=== PATIENT | female | born 1960 | race Two or more races ===

== ENCOUNTER 2023-09-20 00:09 | Inpatient (IN) | payer MEDICAID, OTHER ==
[~2023-09-20] VITALS: Ht 165.1 cm; Wt 80.0 kg
[2023-09-20 01:00] VITALS: PULSE 98; RESP 25; O2SAT 95
[2023-09-20] MEDS: KETOROLAC TROMETH 30 MG/ML 1ML VIAL IV ONE (01:45)
[2023-09-20] MEDS: SODIUM CHLORIDE 0.9% 1,000 ML IV ONE ×3 (01:45→05:45)
[2023-09-20] MEDS: MORPHINE SULFATE 4 MG/ML SYR/VIAL IV ONE (02:15)
[2023-09-20] MEDS: ONDANSETRON HCL 4 MG/2 ML VIAL IV ONE (02:23)
[2023-09-20 02:25] LABS: Basophils # (auto) 0.1 10 ^3/uL (0-0.2); Basophils % (auto) 0.3 % (0.0-2.0); Eosinophils # (auto) 0.1 10 ^3/uL (0-0.8); Eosinophils % (auto) 0.3 % (0.0-7.0); Hematocrit 45.4 % (36.0-46.0); Hemoglobin 15.4 g/dL (12.2-16.2); Lymphocytes # (auto) 1.5 10 ^3/uL (0.4-5.4); Lymphocytes % (auto) 6.7 % (10.0-50.0); Mean Corpuscular Hgb Conc. 33.9 g/dL (32.0-36.0); Mean Corpuscular Volume 91.4 fL (80.0-100.0); Monocytes # (auto) 1.3 10 ^3/uL (0-1.3); Monocytes % (auto) 5.5 % (0.0-12.0); Neutrophils # (auto) 20.1 10 ^3/uL (1.6-8.6); Neutrophils % (auto) 87.2 % (37.0-80.0); Red Blood Cells 4.97 10^6/uL (4.0-5.20); Red Cell Distribution Width 12.7 % (11.8-14.3)
[2023-09-20 02:42] LABS: Alanine Aminotransferase 45 U/L (7-40); Albumin 4.2 g/dL (3.2-4.8); Alkaline Phosphatase 92 U/L (46-116); Anion Gap 9 (5-15); Aspartate Aminotransferase 22 U/L (13-40); BUN/Creatinine Ratio 21.6 (10.0-20.0); Bilirubin, Total 0.4 mg/dL (0.2-1.0); Blood Urea Nitrogen 30 mg/dL (9-23); Calcium 9.9 mg/dL (8.7-10.4); Carbon Dioxide 25 mmol/L (20-30); Chloride 102 mmol/L (98-107); Glucose 227 mg/dL (74-106); Potassium 4.2 mmol/L (3.5-5.1); Sodium 136 mmol/L (136-145); Total Protein 6.7 g/dL (5.7-8.2)
[2023-09-20] MEDS: PIPERACILLIN-TAZO 4.5GM 100 ML IV ONE (03:03)
[2023-09-20] MEDS: SODIUM CHLORIDE 0.9% 1,000 ML IV SCH (04:15)
[2023-09-20] MEDS ORDERED: NITROGLYCERIN 0.4 MG SL TAB SL PRN (04:15)
[2023-09-20] MEDS ORDERED: MORPHINE SULFATE INJ 2 MG/ml SYRG IV PRN (04:15)
[2023-09-20] MEDS ORDERED: DOCUSATE SOD 100 MG CAP PO PRN (04:15)
[2023-09-20] MEDS ORDERED: DEXTROSE (50%) 50ML SYRG IV PRN (04:30)
[2023-09-20 06:32] LABS: Urine Bacteria MANY /hpf (None Seen); Urine Blood Negative /uL (Negative); Urine Clarity Clear (Clear); Urine Color Light-Yellow (Yellow); Urine Hyaline Cast FEW /lpf (0 - 2); Urine Mucus FEW (None Seen); Urine Protein, UAD Negative (Negative); Urine Specific Gravity 1.012 (1.001-1.035); Urine Urobilinogen Normal (Negative); Urine WBC 8 /hpf (0 - 5)
[2023-09-20] MEDS: ACCU-CHEK COMFORT CURVE STRIP VI SCH (06:53)
[2023-09-20] MEDS: InsuLIN REG 1unit/0.01ml Soln (100units/ml) SC SCH ×2 (06:53→22:00)
[2023-09-20] MEDS: MORPHINE SULFATE INJ 2 MG/ml SYRG IV PRN (06:55)
[2023-09-20 08:08] VITALS: PULSE 70; RESP 14; O2SAT 97
[2023-09-20 08:09] LABS: Basophils # (auto) 0.1 10 ^3/uL (0-0.2); Basophils % (auto) 0.4 % (0.0-2.0); Eosinophils # (auto) 0.1 10 ^3/uL (0-0.8); Eosinophils % (auto) 0.7 % (0.0-7.0); Hematocrit 36.1 % (36.0-46.0); Hemoglobin 12.5 g/dL (12.2-16.2); Lymphocytes # (auto) 2.1 10 ^3/uL (0.4-5.4); Lymphocytes % (auto) 16.5 % (10.0-50.0); Mean Corpuscular Hemoglobin 31.5 pg (28.0-32.0); Mean Corpuscular Hgb Conc. 34.5 g/dL (32.0-36.0); Mean Corpuscular Volume 91.3 fL (80.0-100.0); Monocytes # (auto) 1.1 10 ^3/uL (0-1.3); Monocytes % (auto) 8.7 % (0.0-12.0); Neutrophils # (auto) 9.6 10 ^3/uL (1.6-8.6); Neutrophils % (auto) 73.7 % (37.0-80.0); Red Blood Cells 3.95 10^6/uL (4.0-5.20); Red Cell Distribution Width 12.5 % (11.8-14.3)
[2023-09-20 08:22] LABS: Anion Gap 6 (5-15); Carbon Dioxide 24 mmol/L (20-30); Chloride 110 mmol/L (98-107); Potassium 4.2 mmol/L (3.5-5.1); Sodium 140 mmol/L (136-145)
[2023-09-20 08:24] LABS: Calcium 8.6 mg/dL (8.5-10.1)
[2023-09-20 08:28] LABS: BUN/Creatinine Ratio 18.8 (10.0-20.0); Blood Urea Nitrogen 19 mg/dL (9-23); Glucose 167 mg/dL (74-106)
[2023-09-20] MEDS: HEPARIN SODIUM (PORCINE) 5000 UNITS/ML 1ML VIAL SC SCH (10:08)
[2023-09-20] MEDS: PIPERACILLIN-TAZOB 3.375GM 100 ML IV SCH (11:44)
[2023-09-20 20:00] VITALS: PULSE 76; RESP 16; O2SAT 96
[2023-09-20] MEDS: ONDANSETRON HCL 4 MG/2 ML VIAL IV PRN (21:36)
[2023-09-20 22:10] VITALS: BP 132/74; PULSE 76; RESP 18; TEMP 98.5; O2SAT 96
[2023-09-20 22:47] VITALS: PULSE 76; RESP 18; O2SAT 96
[2023-09-20] MEDS: ACETAMINOPHEN 325 MG TAB PO PRN (23:00)
[2023-09-20] MEDS ORDERED: GABA-339 PO (23:21)
[2023-09-20] MEDS ORDERED: HYDR-4902 PO (23:21)
[2023-09-20] MEDS ORDERED: VENL37.572 PO (23:21)
[2023-09-21] VITALS (7 sets, daily range): BP systolic 115–150; BP diastolic 50–96; PULSE 69–80; RESP 14–18; TEMP 36.8; O2SAT 92–99
[2023-09-21 06:03] LABS: Basophils # (auto) 0 10 ^3/uL (0-0.2); Basophils % (auto) 0.4 % (0.0-2.0); Eosinophils # (auto) 0.2 10 ^3/uL (0-0.8); Eosinophils % (auto) 1.8 % (0.0-7.0); Hematocrit 35.2 % (36.0-46.0); Hemoglobin 12.4 g/dL (12.2-16.2); Lymphocytes # (auto) 3.7 10 ^3/uL (0.4-5.4); Lymphocytes % (auto) 35.3 % (10.0-50.0); Mean Corpuscular Hemoglobin 31.9 pg (28.0-32.0); Mean Corpuscular Hgb Conc. 35.3 g/dL (32.0-36.0); Mean Corpuscular Volume 90.6 fL (80.0-100.0); Monocytes # (auto) 0.8 10 ^3/uL (0-1.3); Monocytes % (auto) 7.7 % (0.0-12.0); Neutrophils # (auto) 5.7 10 ^3/uL (1.6-8.6); Neutrophils % (auto) 54.8 % (37.0-80.0); Nucleated Red Blood Cells % 0.1 %; Red Blood Cells 3.89 10^6/uL (4.0-5.20); Red Cell Distribution Width 12.3 % (11.8-14.3); White Blood Cell 10.4 10^3/uL (4.4-10.8)
[2023-09-21 06:14] LABS: Anion Gap 4 (5-15); Carbon Dioxide 27 mmol/L (20-30); Chloride 109 mmol/L (98-107); Potassium 4.4 mmol/L (3.5-5.1); Sodium 140 mmol/L (136-145)
[2023-09-21 06:16] LABS: Calcium 9.1 mg/dL (8.7-10.4)
[2023-09-21 06:20] LABS: BUN/Creatinine Ratio 14.3 (10.0-20.0); Blood Urea Nitrogen 12 mg/dL (9-23); Glucose 132 mg/dL (74-106)
[2023-09-21] MEDS: HYDROcodone-ACET 5/325MG TAB PO PRN (10:28)
[2023-09-21] MEDS ORDERED: METF-370 PO (16:36)
[2023-09-21] MEDS ORDERED: CEPH500C PO (16:36)
== END 2023-09-21 19:40 | disposition home or self-care (01) | DRG 720 ==
LOC: EDBD 00:09 → ER 00:09 → TELE 04:22 → TELE-WESTW 21:57
PROVIDERS: ADMIT Nurse Practitioner Family; ATTEND Nurse Practitioner Family
DX: A41.9 Sepsis, unspecified organism (principal); N17.0 Acute kidney failure with tubular necrosis; E87.20 Acidosis, unspecified; N39.0 Urinary tract infection, site not specified; I10 Essential (primary) hypertension; E11.65 Type 2 diabetes mellitus with hyperglycemia; E86.0 Dehydration; K52.9 Noninfective gastroenteritis and colitis, unspecified; M79.7 Fibromyalgia; F41.9 Anxiety disorder, unspecified; Z79.899 Other long term (current) drug therapy
CPT/HCPCS: 36415; 70450; 74176; 80048; 80053; 81001; 82962; 83036; 83605; 85025; 87040; 87086; 87088; 87186; 93005; 93306; 96361; 96365; 96372; 96375; 96376; 97163; G0378; J1815; J1885; J2405; J2543

== ENCOUNTER 2024-07-16 16:58 | Inpatient (IN) | payer MEDICAID ==
[~2024-07-16] VITALS: Ht 162.6 cm; Wt 82.3 kg
[~2024-07-16 16:58] MED LIST: CEPH500C PO; GABA-339 PO; HYDR-4902 PO; METF-370 PO; VENL37.572 PO
--- NOTE | 2024-07-16 17:07 | ECG ---
[facility] Test Date: 2024-07-16 Test Time: 17:04:34 Pat Name: MARLIN THURMAN Department: ER Room: Gender: F [employer] Docent: JUANCHO : 1960 Requested By: JAILYN BILL Order Number: [id number] Reading MD: Sanchez Lopez Measurements Intervals [place] Rate: 83 P: 53 SD: 150 QRS: 66 QRSD: 94 T: 36 QT: 382 QTc: 449 Interpretive Statements Sinus rhythm Probable left atrial enlargement Electronically Signed On 07-16-2024 20:39:59 PDT by Sanchez Lopez Please click the below link to view image of tracing.
--- NOTE | 2024-07-16 17:08 | ED.PDOC ---
GI ASSESSMENT HPI Comments 63 y.o female with PMHx of Fibromyalgia, HTN, DM, and CVA, presents to the ED via EMS for a chief complaint of abdominal pain and dizziness. EMS reports patient was at the store picking up cough medicine for her spouse, went to the restroom and developed sudden onset sharp abdominal pain with dizziness leading to the 911 call. EMS administrated 500 cc IV fluid, presents to the ED diaphoretic and mumbling. Patient reports pain is still present and is non radiating. No other symptoms or pain reported. Time Seen by MD: 17:00 Reviewed Notes: Nurses Notes, Medications, Allergies Allergies: Coded Allergies: Prochlorperazine (Verified Allergy, Unknown, 09/20/23) Home Meds Active Scripts Metformin Hydrochloride (Metformin Hcl) 500 Mg Tab, 1 TAB PO BID, #60 TAB 3 Refills Prov:MADELAINE SULLIVAN MD 09/21/23 Cephalexin Monohydrate (Cephalexin) 500 Mg Cap, 1 CAP PO QID for 3 Days, #12 CAP Prov:MADELAINE SULLIVAN MD 09/21/23 Reported Medications Venlafaxine Hydrochloride (Effexor Xr) 37.5 Mg Cap, 1 CAP PO DAILY, #90 CAP 3 Refills 09/20/23 Hydrocodone-Acetaminophen (Hydrocodone Bitartrate/AC 5-325 mg) 1 Tab Tab, 1 TAB PO, TAB 09/20/23 Gabapentin (Gabapentin) 600 Mg Tab, 1 TAB PO BID, #90 TAB 3 Refills 09/20/23 Information Source: Patient, Emergency Med Personnel Mode of Arrival: EMS Timing: Minutes Duration: Since onset Prehospital treatment: IVF Quality: Sharp Vomitus: None Stool: Normal Severity: Moderate Recent: None Recent Hx of: None Pain Location: Diffuse Modifying Factors: Nothing Associated sign and symptoms: Abdominal Pain Past Medical History PAST MEDICAL HISTORY: CVA, DM, HTN Surgical History: Cholecystectomy LNA History: Denies all LNA Hx Family History Family History: Reviewed,noncontributory to illness Social History Smoker: Non-Smoker Alcohol: Denies ETOH Use Drugs: Denies Drug Use Lives In: Home Constitutional: denies: chills, diaphoresis, fatigue, fever, malaise, sweats, weakness, others EENTM: denies: blurred vision, double vision, ear bleeding, ear discharge, ear drainage, ear pain, ear ringing, eye pain, eye redness, hearing loss, mouth pain, mouth swelling, nasal discharge, nose bleeding, nose congestion, nose pain, photophobia, tearing, throat pain, throat swelling, voice changes, others Respiratory: denies: cough, hemoptysis, orthopnea, SOB at rest, shortness of breath, SOB with excertion, stridor, wheezing, others Cardiovascular: denies: chest pain, dizzy spells, diaphoresis, Dyspnea on exertion, edema, irregular heart beat, left arm pain, lightheadedness, palpitations, PND, syncope, others Gastrointestinal: reports: abdominal pain; denies: abdomen distended, blood streaked bowels, constipated, diarrhea, dysphagia, difficulty swallowing, hematemesis, melena, nausea, poor appetite, poor fluid intake, rectal bleeding, rectal pain, vomiting, others Genitourinary: denies: abnormal vagina bleeding, burning, dyspareunia, dysuria, flank pain, frequency, hematuria, incontinence, pain, , vagina discharge, urgency, others Neurological: reports: dizziness; denies: fainting, headache, left sided numbness, left sided weakness, numbness, paresthesia, pre-existing deficit, right sided numbness, right sided weakness, seizure, speech problems, tingling, tremors, weakness, others Musculoskeletal: denies: back pain, gout, joint pain, joint swelling, muscle pain, muscle stiffness, neck pain, others Integumetry: denies: bruises, change in color, change in hair/nails, dryness, laceration, lesions, lumps, rash, wounds, others Allergic/Immunocompromised: denies: Difficulty Healing, Frequent Infections, Hives, Itching, others Hematologic/Lymphatic: denies: anemia, blood clots, easy bleeding, easy bruising, swollen glands, others Endocrine: denies: excessive hunger, excessive sweating, excessive thirst, excessive urination, flushing, intolerance to cold, intolerance to heat, unexplained weight gain, unexplained weight loss, others Psychiatric: denies: anxiety, bipolar disorder, depression, hopeless, panic disorder, schizophrenia, sleepless, suicidal, others All Other Systems: Reviewed and Negative Physical Exam General Appearance: Moderate Distress HEENT: Normal ENT Inspection, Pharynx Normal, TMs Normal Neck: Full Range of Motion, Non-Tender, Normal, Normal Inspection Respiratory: Chest Non-Tender, Lungs Clear, No Accessory Muscle Use, No Respiratory Distress, Normal Breath Sounds Cardiovascular: No Edema, No JVD, No Murmur, No Gallop, Normal Peripheral Pulses, Regular Rate/Rhythm Breast Exam: Deferred Gastrointestinal: No Organomegaly, Non Tender, No Pulsatile Mass, Normal Bowel Sounds, Soft Genitalia: Deferred Pelvic: Deferred Rectal: Deferred Extremities: No calf tenderness, Normal capillary refill, Normal inspection, Normal range of motion, Non-tender, No pedal edema Musculoskeletal : Apperance: Normal Neurologic: pet technologist II-XII nml as Tested, Motor Weakness, No Sensory Deficits, Other (Somewhat lethargic) Cerebellar Function: Normal Reflexes: Normal Skin: Dry, Pallor, Warm Lymphatic: No Adenopathy EKG EKG : Pulse Rate (adult): 83 Cardiac Rhythm: NSR Hypertrophy: LAE Was a procedure done? Was a procedure done?: No GI differential Dx Differential Diagnosis: AAA, Angina/NE, Gastroenteritis, Inflammatory BD, Ischemic Bowel, Ovarian cyst/torsion, Dehydration, Electrolyte Imbalance, Viral X-Ray, Labs, Meds, VS Vital Signs Date Time Temp Pulse Resp B/P (MAP) Pulse Ox O2 Delivery O2 Flow Rate FiO2 07/16/24 19:30 98.5 85 13 125/64 (84) 95 98.5 07/16/24 17:30 Room Air* 0 21 07/16/24 17:30 98.3 69 13 125/64 (84) 98 98.3 07/16/24 17:08 83 07/16/24 17:04 83 07/16/24 17:04 97.9 82 22 124/78 (93) 90 97.9 Lab Test 07/16/24 18:27 07/16/24 17:23 Range/Units Troponin I High Sensitivity < 3 L < 3 L </=34 ng/L White Blood Count 13.0 H 4.4-10.8 10^3/uL Red Blood Count 4.72 4.0-5.20 10^6/uL Hemoglobin 14.9 12.2-16.2 g/dL Hematocrit 44.0 36.0-46.0 % Mean Corpuscular Volume 93.4 80.0-100.0 fL Mean Corpuscular Hemoglobin 31.6 28.0-32.0 pg Mean Corpuscular Hemoglobin Concent 33.8 32.0-36.0 g/dL Red Cell Distribution Width 12.9 11.8-14.3 % Platelet Count 280 140-450 10^3/uL Mean Platelet Volume 8.4 6.9-10.8 fL Neutrophils (%) (Auto) 65.4 37.0-80.0 % Lymphocytes (%) (Auto) 25.0 10.0-50.0 % Monocytes (%) (Auto) 8.1 0.0-12.0 % Eosinophils (%) (Auto) 0.8 0.0-7.0 % Basophils (%) (Auto) 0.7 0.0-2.0 % Neutrophils # (Auto) 8.5 1.6-8.6 10 ^3/uL Lymphocytes # (Auto) 3.2 0.4-5.4 10 ^3/uL Monocytes # (Auto) 1.0 0-1.3 10 ^3/uL Eosinophils # (Auto) 0.1 0-0.8 10 ^3/uL Basophils # (Auto) 0.1 0-0.2 10 ^3/uL Nucleated Red Blood Cells 0.1 % Sodium Level 136 136-145 mmol/L Potassium Level 4.0 3.5-5.1 mmol/L Chloride Level 101 98-107 mmol/L Carbon Dioxide Level 26 20-31 mmol/L Anion Gap 9 5-15 Blood Urea Nitrogen 28 H 9-23 mg/dL Creatinine 1.44 H 0.550-1.02 mg/dL Glomerular Filtration Rate Calc 41 >90 mL/min BUN/Creatinine Ratio 19.4 10.0-20.0 Serum Glucose 187 H 74-106 mg/dL Calcium Level 10.0 8.7-10.4 mg/dL Total Bilirubin 0.4 0.2-1.0 mg/dL Aspartate Amino Transferase (AST) 21 13-40 U/L Alanine Aminotransferase (ALT) 38 7-40 U/L Alkaline Phosphatase 59 46-116 U/L Total Protein 7.2 5.7-8.2 g/dL Albumin 4.6 3.2-4.8 g/dL Lipase 88 H 12-53 U/L The patient's CBC shows an elevated white blood cell count of 13 The chemistry panel shows a BUN of 28 and a creatinine of 1.44 The lipase is 88 indicating some elevation The patient's troponin level is negative x2 The patient will be admitted to the hospitalist The patient was still having generalized weakness and pain Images Reviewed?: Images reviewed and evaluated by me Time of 1ST Reevaluation: 17:07 Reevaluation 1ST: Unchanged Patient Education/Counseling: Diagnosis, Treatment, Prognosis Family Education/Counseling: No Family Present Departure 1 Departure Time of Disposition: 19:58 Impression: Primary Impression: Generalized weakness Additional Impressions: Autonomic dysfunction Abdominal pain Qualified Codes: R10.9 - Unspecified abdominal pain Disposition: 09 ADMITTED INPATIENT Admit to: Tele Condition: Fair Critical Care Note Critical Care Time?: No Stability Stability form required: Yes Unstable for transfer: Telemetry monitoring (Telemetry monitoring required), ED Physician Assesment (Clinical assesment) I personally scribed for JAILYN BILL MD ([email or web address]) on 07/16/24 at 17:08. Electronically submitted by Deandra Maradiaga ([facility]). JAILYN BILL MD Jul 16, 2024 17:08
[2024-07-16 17:45] LABS: Basophils # (auto) 0.1 10 ^3/uL (0-0.2); Basophils % (auto) 0.7 % (0.0-2.0); Eosinophils # (auto) 0.1 10 ^3/uL (0-0.8); Eosinophils % (auto) 0.8 % (0.0-7.0); Hemoglobin 14.9 g/dL (12.2-16.2); Lymphocytes # (auto) 3.2 10 ^3/uL (0.4-5.4); Mean Corpuscular Hemoglobin 31.6 pg (28.0-32.0); Mean Corpuscular Hgb Conc. 33.8 g/dL (32.0-36.0); Mean Corpuscular Volume 93.4 fL (80.0-100.0); Monocytes % (auto) 8.1 % (0.0-12.0); Neutrophils # (auto) 8.5 10 ^3/uL (1.6-8.6); Neutrophils % (auto) 65.4 % (37.0-80.0); Nucleated Red Blood Cells % 0.1 %; Platelet Count (auto) 280 10^3/uL (140-450); Red Blood Cells 4.72 10^6/uL (4.0-5.20); Red Cell Distribution Width 12.9 % (11.8-14.3)
[2024-07-16 18:26] LABS: Alanine Aminotransferase 38 U/L (7-40); Albumin 4.6 g/dL (3.2-4.8); Alkaline Phosphatase 59 U/L (46-116); Anion Gap 9 (5-15); Aspartate Aminotransferase 21 U/L (13-40); BUN/Creatinine Ratio 19.4 (10.0-20.0); Bilirubin, Total 0.4 mg/dL (0.2-1.0); Carbon Dioxide 26 mmol/L (20-31); Chloride 101 mmol/L (98-107); Sodium 136 mmol/L (136-145); Total Protein 7.2 g/dL (5.7-8.2)
[2024-07-16 18:28] LABS: Blood Urea Nitrogen 28 mg/dL (9-23); Glucose 187 mg/dL (74-106); Lipase 88 U/L (12-53)
[2024-07-16 19:30] VITALS: PULSE 107; RESP 26; O2SAT 93
--- NOTE | 2024-07-16 19:45 | DVH ---
Exam: CT CT AB PEL WO CON-NO ORAL OR IV History: pain Comparison Study: None Technique: Multidetector spiral CT of the abdomen was performed from lung bases to pubic symphysis. I maging was performed without IV contrast. Axial, coronal and sagittal multiplanar reformats were obta ined from the axial data set by the technologist. Radiation Dose : 1. Abdomen/Pelvis: CTDIvol 10.62 mGy, DLP 609.84 mGy*cm. Findings: Evaluation of solid organs is limited due to lack of intravenous contrast use. Lung Bases: Scattered scarring. Liver: Hepatic steatosis. Gallbladder and Biliary Tree: Surgically absent gallbladder. No significant biliary ductal dilatation . Spleen: Unremarkable Pancreas: Unremarkable Adrenal Glands: Unremarkable Kidneys: Unremarkable Bladder: Trace air noted within the bladder. Bowel: Mild wall thickening of the descending colon with possible mild adjacent fat stranding. The b owel loops are nondilated. Normal appendix is visualized in the right lower quadrant without findings of appendicitis. Peritoneum and Retroperitoneum: Unremarkable Lymphadenopathy: No lymphadenopathy. Abdominal Wall: Unremarkable. Vasculature: The visualized abdominal aorta is normal in size and caliber. There is atherosclerotic calcification of the aorta and its branches. Evaluation of abdominal and pelvic vessels is limited du e to lack of intravenous contrast. Pelvic Organs: Unremarkable Musculoskeletal: No acute osseous abnormality. Degenerative changes. IMPRESSION: 1. Mild wall thickening of the descending colon with possible mild adjacent fat stranding. Findings c ould represent colitis of infectious or inflammatory etiology. 2. Trace air noted within the bladder, nonspecific, could be due to prior dominguez or can be seen with c ystitis. Radiation optimization: All CT scans at this facility use at least one of these dose optimization miles hniques: automated exposure control mA and/or kV adjustment per patient size (includes targeted exam s where dose is matched to clinical indication) or iterative reconstruction.
[2024-07-16] MEDS: HYDROcodone-ACET 10/325MG TAB PO ONE (20:40)
[2024-07-16] MEDS: SODIUM CHLORIDE 0.9% 1,000 ML IV ONE (21:00)
[2024-07-16 22:57] LABS: Urine Bacteria FEW /hpf (None Seen); Urine Blood Negative /uL (Negative); Urine Clarity Clear (Clear); Urine Color Light-Yellow (Yellow); Urine Hyaline Cast FEW /lpf (0 - 2); Urine Mucus FEW (None Seen); Urine Protein, UAD Negative (Negative); Urine Specific Gravity 1.012 (1.001-1.035); Urine Squamous Epithelial Cell FEW /hpf (<5); Urine Urobilinogen Normal (Negative); Urine WBC 2 /HPF (0-5)
[2024-07-16 22:59] LABS: Opiate Scree,Urine Neg (NEGATIVE)
--- NOTE | 2024-07-16 23:01 | DVH ---
CT BRAIN WITHOUT CONTRAST HISTORY: aloc TECHNIQUE: Axial scans were obtained from the skull base through the vertex without contrast. Sagitta l and coronal reformats were generated. One or more of the following radiation dose reduction techniq ues were used for this examination: automated exposure control, adjustment of the mA and/or kV accord ing to patient size, use of iterative reconstruction technique. COMPARISON: CT HEAD WITHOUT CONTRAST on DOS: 09/20/23 FINDINGS: Mild generalized cerebral and cerebellar atrophy. No acute intracranial hemorrhage or evidence of lar ge vessel territorial infarction identified at this time. No midline shift. The basilar cisterns are patent. The visualized paranasal sinuses and mastoid air cells are clear. No grossly displaced calvarial abno rmalities identified. IMPRESSION: No acute intracranial findings. If there is persistent clinical concern, follow-up MRI may be conside red to further evaluate.
[2024-07-16 23:05] LABS: Amphetamine Screen, Urine Neg (NEGATIVE); Barbiturate Scree,Urine Neg (NEGATIVE); Benzodiazephine Screen, Urine Neg (NEGATIVE); Cannabinoid Screen, Urine Neg (NEGATIVE); Cocaine Screen, Urine Neg (NEGATIVE); Phencyclidine Screen, Urine Neg (NEGATIVE)
[2024-07-16] MEDS ORDERED: ONDANSETRON HCL 4 MG/2 ML VIAL IV PRN (23:15)
[2024-07-16] MEDS: SODIUM CHLORIDE 0.9% 1,000 ML IV SCH (23:15)
[2024-07-16] MEDS: HYDROMORPHONE HCL 1 MG/ML INJ IV ONE (23:22)
[2024-07-16] MEDS: ONDANSETRON HCL 4 MG/2 ML VIAL IV ONE (23:23)
[2024-07-17] VITALS (10 sets, daily range): BP systolic 113–158; BP diastolic 54–90; PULSE 60–112; RESP 15–20; TEMP 98–100.1; O2SAT 90–100
[2024-07-17 00:27] LABS: Lactic Acid w/Reflex 2.6 mmol/L (0.4-2.0)
--- NOTE | 2024-07-17 01:23 | DVHHP2 ---
Admitting Diagnosis: Colitis, UTI, Dizziness History of Present Illness History Source: Patient Exam Limitations: No limitations HPI Mrs. Neida Castano is a 63 y.o female with a past medical history of Fibromyalgia, HTN, DM, and CVA, who presents with a chief complaint of abdominal pain and dizziness. Patient reports patient was at the store picking up cough medicine for her spouse, went to the restroom and developed sudden onset sharp abdominal pain with dizziness leading to the 911 call. Patient reports she was prescribed medication for vertigo, since she has been having ongoing dizziness intermittently however she has never had a near syncope episode. Patient denies chest pain, headaches, blurry vision, nausea, vomiting, abdominal pain, constipation, diarrhea, melena, hematochezia. Patient repots she has familial history of NC with stents, pacemaker placement NC. Patient admitted for further evaluation and treatment. Home Meds Active Scripts Metformin Hydrochloride (Metformin Hcl) 500 Mg Tab, 1 TAB PO BID, #60 TAB 3 Refills Prov:MADELAINE SULLIVAN MD 09/21/23 Cephalexin Monohydrate (Cephalexin) 500 Mg Cap, 1 CAP PO QID for 3 Days, #12 CAP Prov:MADELAINE SULLIVAN MD 09/21/23 Reported Medications Cyclobenzaprine HCl (Cyclobenzaprine Hydrochlo) 10 Mg Tab, 1 TAB PO QHSP 07/17/24 Semaglutide (Rybelsus) 7 Mg Tab, 1 TAB PO DAILY 07/17/24 Baclofen (Baclofen) 20 Mg Tab, 1 TAB PO TID 07/17/24 Sumatriptan Succinate (Sumatriptan Succinate) 100 Mg Tab, 1 TAB PO DAILYPRN 07/17/24 Omeprazole (Omeprazole Dr) 20 Mg Cap, 1 CAP PO DAILY 07/17/24 Hydrocodone-Acetaminophen (Hydrocodone/Acetaminophen 5-325 mg) 1 Tab Tab, 1 TAB PO BIDPRN 07/17/24 Venlafaxine Hcl (Venlafaxine Hcl Er) 75 Mg Cap, 1 CAP PO DAILY 07/17/24 Oxybutynin Chloride (Oxybutynin Chloride) 5 Mg Tab, 1 TAB PO BID 07/17/24 Meloxicam (Meloxicam) 7.5 Mg Tab, 1 TAB PO DAILY 07/17/24 Venlafaxine Hydrochloride (Effexor Xr) 37.5 Mg Cap, 1 CAP PO DAILY, #90 CAP 3 Refills 09/20/23 Hydrocodone-Acetaminophen (Hydrocodone Bitartrate/AC 5-325 mg) 1 Tab Tab, 1 TAB PO, TAB 09/20/23 Gabapentin (Gabapentin) 600 Mg Tab, 1 TAB PO BID, #90 TAB 3 Refills 09/20/23 Past Medical History Cardiac: HTN Pulmonary: No pertinent Hx Central Nervous System: CVA GI: No pertinent Hx Hemotology/Oncology: No pertinent Hx Hepatobiliary: No pertinent Hx Psychiatric: No pertinent Hx Musculoskeletal: No pertinent Hx Rheumotologic: Fibromyalgia Infectious Disease: No peritnent Hx ENT: No pertinent Hx Renal/: No pertinent Hx Endocrine: NIDDM Dermatology: No pertinent Hx Patient Family History: Diabetes mellitus G8 MOTHER G8 FATHER, Hypertension G8 MOTHER Smoker: No Hx (Negative) Alocohol: None Drugs: None Lives with: With family Domestic Violence: Neg Review of Systems Constitutional: No symptom reported Ears, Nose, & Throat: No symptom reported Eyes: No symptom reported Pulmonary/Respiratory: No symptom reported Cardiovascular: Other (near syncope , dizziness) Gastrointestinal: No symptom reported Genitourinary: No symptom reported Musculoskeletal: No symptom reported Skin: No symptom reported Psychiatric: No symptom reported Endocrine: No symptom reported Hemotologic/Lymphatic: No symptom reported H&P Exam Vital Signs Vital Signs Date Time Temp Pulse Resp B/P (MAP) Pulse Ox O2 Delivery O2 Flow Rate FiO2 07/17/24 00:00 79 07/16/24 23:22 12 133/72 07/16/24 21:00 93 07/16/24 19:30 98.5 98.5 07/16/24 17:30 Room Air* 0 21 General Appeara: Well developed, Well nourished, Normal Appearance Head Exam: Normal inspection Neck Exam: Normal inspection, Non-tender, Normal alignment Eye Exam: bilateral eye Normal inspection, bilateral eye PERRL, bilateral eye EOMI Ear Exam: bilateral ear Auricle normal Nasal Exam: Normal inspection Mouth: Normal Inspection Pulmonary/Respiratory: Normal inspection, Normal breath sounds, Chest non- tender, Lungs clear Cardiovascular/Chest: Normal inspection, Regular rate, Normal Rhythm Peripheral Pulses: 2+ dorsalis pedis (R), 2+ dorsalis pedis (L), 2+ Radial (R), 2+ Radial (L) Abdominal Exam: Normal bowel sounds, Soft TAKE OUT WAITER Exam: Normal hearing, Normal speech, PERRL Motor/Sensory: Normal sensory function, Normal motor function Neuro/Mental St: Alert, Oriented Appearance: Appropriate appearance, Appropriate insight Eye contact/ Speech: Cooperative, Good eye contact, Normal speech Thoughts/Psych: Normal thought pattern Skin Exam: Normal inspection, Normal color, Warm/dry Labs/Xrays Labs Test 07/16/24 23:20 07/16/24 20:20 07/16/24 18:27 07/16/24 17:23 Range/Units Lactic Acid Level 2.6 *H 0.4-2.0 mmol/L Urine Color Light-yellow Yellow Urine Clarity Clear Clear Urine pH 5.0 5.0-9.0 Urine Specific [place] 1.012 1.001-1.035 Urine Protein Negative Negative Urine Ketones Negative Negative Urine Blood Negative Negative /uL Urine Nitrite 2+ H Negative Urine Bilirubin Negative Negative Urine Urobilinogen Normal Negative mg/dL Urine Leukocyte Esterase Negative Negative /uL Urine RBC <1 0 - 4 /hpf Urine Microscopic WBC 2 0-5 /HPF Urine Squamous Epithelial Cells Few <5 /hpf Urine Bacteria Few H None Seen /hpf Urine Hyaline Casts Few 0 - 2 /lpf Urine Mucus Few None Seen Urine Glucose Trace Normal mg/dL Urine Opiates Screen Neg NEGATIVE Urine Fentanyl Screen Neg NEGATIVE Urine Barbiturates Screen Neg NEGATIVE Urine Phencyclidine Screen Neg NEGATIVE Urine Amphetamines Screen Neg NEGATIVE Urine Benzodiazepines Screen Neg NEGATIVE Urine Cocaine Screen Neg NEGATIVE Urine Cannabinoids Screen Neg NEGATIVE Thyroid Stimulating Hormone (TSH) 1.27 0.55-4.78 uIU/mL White Blood Count 13.0 H 4.4-10.8 10^3/uL Red Blood Count 4.72 4.0-5.20 10^6/uL Hemoglobin 14.9 12.2-16.2 g/dL Hematocrit 44.0 36.0-46.0 % Mean Corpuscular Volume 93.4 80.0-100.0 fL Mean Corpuscular Hemoglobin 31.6 28.0-32.0 pg Mean Corpuscular Hemoglobin Concent 33.8 32.0-36.0 g/dL Red Cell Distribution Width 12.9 11.8-14.3 % Platelet Count 280 140-450 10^3/uL Mean Platelet Volume 8.4 6.9-10.8 fL Neutrophils (%) (Auto) 65.4 37.0-80.0 % Lymphocytes (%) (Auto) 25.0 10.0-50.0 % Monocytes (%) (Auto) 8.1 0.0-12.0 % Eosinophils (%) (Auto) 0.8 0.0-7.0 % Basophils (%) (Auto) 0.7 0.0-2.0 % Neutrophils # (Auto) 8.5 1.6-8.6 10 ^3/uL Lymphocytes # (Auto) 3.2 0.4-5.4 10 ^3/uL Monocytes # (Auto) 1.0 0-1.3 10 ^3/uL Eosinophils # (Auto) 0.1 0-0.8 10 ^3/uL Basophils # (Auto) 0.1 0-0.2 10 ^3/uL Nucleated Red Blood Cells 0.1 % Sodium Level 136 136-145 mmol/L Potassium Level 4.0 3.5-5.1 mmol/L Chloride Level 101 98-107 mmol/L Carbon Dioxide Level 26 20-31 mmol/L Anion Gap 9 5-15 Blood Urea Nitrogen 28 H 9-23 mg/dL Creatinine 1.44 H 0.550-1.02 mg/dL Glomerular Filtration Rate Calc 41 >90 mL/min BUN/Creatinine Ratio 19.4 10.0-20.0 Serum Glucose 187 H 74-106 mg/dL Hemoglobin A1c 6.2 H <5.7 % A1C Calcium Level 10.0 8.7-10.4 mg/dL Total Bilirubin 0.4 0.2-1.0 mg/dL Aspartate Amino Transferase (AST) 21 13-40 U/L Alanine Aminotransferase (ALT) 38 7-40 U/L Alkaline Phosphatase 59 46-116 U/L Total Protein 7.2 5.7-8.2 g/dL Albumin 4.6 3.2-4.8 g/dL Lipase 88 H 12-53 U/L Assessment/Plan Problem List: (1) Colitis (2) Urinary tract infection (3) Dizziness Plan This is a 63 yo female with known history of hypertension, DM, CVA, Fibromyalgia who presents with abdominal pain and dizziness. Patient was found to have 1. Colitis 2. Urinary tract infection 3. Dizziness 4. hx of CVA 5. Hypertension Plan Admit Telemetry unit Gastroenterology consultation Cardiology consultation, 2D echocardiogram IV antibiotics Flagyl, Levaquin Monitor BMP, CBC GI ppx Protonix DVT ppx Lovenox Analgesics as needed Fall precautions Discussed all above with patient who verbalized agreement and understanding of care plan. All questions were answered. Discussed all above with supervising MD. Plan discussed with: Patient, Other Code Visit Code Visit Total Time (mins): 45 Additional Comments Additional Comments Additional Comments 53-year-old female with a known history of fibromyalgia, diabetes mellitus type 2 initially presented to the hospital with the abdominal pain and dizziness found to have 1. Descending colon colitis 2. UTI 3. Leukocytosis likely reactive 4. Dizziness resolved rule out orthostatic vitals. 5. Diabetes mellitus type 2 6. Fibromyalgia -IV antibiotics, IV hydration, check orthostatic vitals. YOMI ARAYA Jul 17, 2024 01:22 MADELAINE SULLIVAN MD Jul 17, 2024 16:29
[2024-07-17] MEDS: HYDROcodone-ACET 5/325MG TAB PO PRN (02:25)
--- NOTE | 2024-07-17 04:40 | DVH ---
CHEST RADIOGRAPH Indication: admission Technique: Single frontal view of the chest was obtained Comparison: None FINDINGS: Lines and Tubes: None Lungs: No focal consolidation. Pleura: No effusion. No pneumothorax. Cardiomediastinal contours: Unremarkable Bones: No acute osseous abnormality. IMPRESSION: 1. No acute cardiopulmonary disease.
[2024-07-17] MEDS ORDERED: VENL75CA78 PO (05:06)
[2024-07-17] MEDS ORDERED: BACL20TA PO (05:06)
[2024-07-17] MEDS ORDERED: SEMA7TAB2 PO (05:06)
[2024-07-17] MEDS ORDERED: HYDR1TAB97 PO (05:06)
[2024-07-17] MEDS ORDERED: SUMA100T15 PO (05:06)
[2024-07-17] MEDS ORDERED: CYCL-611 PO (05:06)
[2024-07-17] MEDS ORDERED: MELO7.5T7 PO (05:06)
[2024-07-17] MEDS ORDERED: OMEP1CAP70 PO (05:06)
[2024-07-17] MEDS ORDERED: OXYB5TAB14 PO (05:06)
[2024-07-17] MEDS: MORPHINE SULFATE INJ 2 MG/ml SYRG IV PRN (05:42)
[2024-07-17] MEDS: metroNIDAZOLE 500MG/100ML 100 ML IV SCH (05:57)
[2024-07-17 07:19] LABS: Basophils # (auto) 0.1 10 ^3/uL (0-0.2); Basophils % (auto) 0.5 % (0.0-2.0); Eosinophils # (auto) 0.1 10 ^3/uL (0-0.8); Hematocrit 39.9 % (36.0-46.0); Hemoglobin 13.8 g/dL (12.2-16.2); Lymphocytes # (auto) 2.2 10 ^3/uL (0.4-5.4); Lymphocytes % (auto) 16.4 % (10.0-50.0); Mean Corpuscular Hemoglobin 31.7 pg (28.0-32.0); Mean Corpuscular Hgb Conc. 34.6 g/dL (32.0-36.0); Mean Corpuscular Volume 91.7 fL (80.0-100.0); Monocytes # (auto) 1.3 10 ^3/uL (0-1.3); Monocytes % (auto) 9.8 % (0.0-12.0); Neutrophils # (auto) 9.8 10 ^3/uL (1.6-8.6); Neutrophils % (auto) 72.3 % (37.0-80.0); Platelet Count (auto) 261 10^3/uL (140-450); Red Blood Cells 4.35 10^6/uL (4.0-5.20); Red Cell Distribution Width 12.8 % (11.8-14.3); White Blood Cell 13.5 10^3/uL (4.4-10.8)
[2024-07-17 07:29] LABS: Anion Gap 9 (5-15); Carbon Dioxide 26 mmol/L (20-31); Chloride 104 mmol/L (98-107); Sodium 139 mmol/L (136-145)
[2024-07-17 07:30] LABS: Calcium 9.6 mg/dL (8.7-10.4)
[2024-07-17 07:35] LABS: BUN/Creatinine Ratio 28.1 (10.0-20.0)
[2024-07-17 07:36] LABS: Blood Urea Nitrogen 25 mg/dL (9-23); Glucose 140 mg/dL (74-106); Lipase 55 U/L (12-53)
[2024-07-17] MEDS: GABAPENTIN 300 MG CAP PO SCH (09:15)
[2024-07-17] MEDS: PANTOPRAZOLE 40 MG/10 ML VIAL INJ IV SCH (09:15)
[2024-07-17] MEDS: levoFLOXacin 500MG 100 ML IV ONE (09:15)
[2024-07-17] MEDS: ENOXAPARIN SOD 40 MG/0.4 ML SYRINGE SC SCH (09:15)
[2024-07-17] MEDS ORDERED: levoFLOXacin 500MG 100 ML IV SCH (10:00)
--- NOTE | 2024-07-17 13:37 | DVHINCON2 ---
GI Consult Consult Note GI consult note Date of Consultation: 07/17/2024 Chief Complaint: Abdominal pain Referring Physician: Keyshawn DE LA FUENTE H&P: 63-year-old female with past medical history of fibromyalgia, hypertension, DM, and CVA presents to ER with complains of abdominal pain and dizziness.Patient had an episode of sharp abdominal pain yesterday and then had symptoms of dizziness. Mostly pain is on her right upper side. Status post cholecystectomy 30 years ago. Admits to having symptoms of GERD. No nausea or vomiting. Patient admits to having loose stool for one day watery in nature, twice, no melena or red blood in stool. Patient admits to taking antibiotics for dental work a few weeks ago Status post colonoscopy more than 10 years ago. Patient has history of constipation Past Medical History: CVA, DM, HTN Past Surgical History: Cholecystectomy Social History: NO smoking, drinking ETOH and use of illegal drugs. Family History: Noncontributory Review of Systems: Constitutional: no fever, chill, weight loss HEENT: no eye pain, no hearing loss, no oral lesion, no scleral icterus Heart: no chest pain, no chest pressure Lung: no cough, no dyspnea with exertion Abdomen: see HPI Physical exam: General: NAD, AAOX3 Chest: lung roberts clear to auscultation Heart: RRR, no murmur Abdomen: Moderate right-sided tenderness to palpation, +BS Labs: Labs Test 07/17/24 06:40 07/17/24 02:33 07/16/24 23:20 07/16/24 20:20 Range/Units White Blood Count 13.5 H 4.4-10.8 10^3/uL Red Blood Count 4.35 4.0-5.20 10^6/uL Hemoglobin 13.8 12.2-16.2 g/dL Hematocrit 39.9 36.0-46.0 % Mean Corpuscular Volume 91.7 80.0-100.0 fL Mean Corpuscular Hemoglobin 31.7 28.0-32.0 pg Mean Corpuscular Hemoglobin Concent 34.6 32.0-36.0 g/dL Red Cell Distribution Width 12.8 11.8-14.3 % Platelet Count 261 140-450 10^3/uL Mean Platelet Volume 8.6 6.9-10.8 fL Neutrophils (%) (Auto) 72.3 37.0-80.0 % Lymphocytes (%) (Auto) 16.4 10.0-50.0 % Monocytes (%) (Auto) 9.8 0.0-12.0 % Eosinophils (%) (Auto) 1.0 0.0-7.0 % Basophils (%) (Auto) 0.5 0.0-2.0 % Neutrophils # (Auto) 9.8 H 1.6-8.6 10 ^3/uL Lymphocytes # (Auto) 2.2 0.4-5.4 10 ^3/uL Monocytes # (Auto) 1.3 0-1.3 10 ^3/uL Eosinophils # (Auto) 0.1 0-0.8 10 ^3/uL Basophils # (Auto) 0.1 0-0.2 10 ^3/uL Nucleated Red Blood Cells 0.0 % Sodium Level 139 136-145 mmol/L Potassium Level 4.0 3.5-5.1 mmol/L Chloride Level 104 98-107 mmol/L Carbon Dioxide Level 26 20-31 mmol/L Anion Gap 9 5-15 Blood Urea Nitrogen 25 H 9-23 mg/dL Creatinine 0.89 # 0.550-1.02 mg/dL Glomerular Filtration Rate Calc 73 >90 mL/min BUN/Creatinine Ratio 28.1 H 10.0-20.0 Serum Glucose 140 H 74-106 mg/dL Lactic Acid Level 1.6 0.4-2.0 mmol/L Calcium Level 9.6 8.7-10.4 mg/dL Lipase 55 H 12-53 U/L Troponin I High Sensitivity < 3 L </=34 ng/L Urine Color Light-yellow Yellow Urine Clarity Clear Clear Urine pH 5.0 5.0-9.0 Urine Specific [place] 1.012 1.001-1.035 Urine Protein Negative Negative Urine Ketones Negative Negative Urine Blood Negative Negative /uL Urine Nitrite 2+ H Negative Urine Bilirubin Negative Negative Urine Urobilinogen Normal Negative mg/dL Urine Leukocyte Esterase Negative Negative /uL Urine RBC <1 0 - 4 /hpf Urine Microscopic WBC 2 0-5 /HPF Urine Squamous Epithelial Cells Few <5 /hpf Urine Bacteria Few H None Seen /hpf Urine Hyaline Casts Few 0 - 2 /lpf Urine Mucus Few None Seen Urine Glucose Trace Normal mg/dL Urine Opiates Screen Neg NEGATIVE Urine Fentanyl Screen Neg NEGATIVE Urine Barbiturates Screen Neg NEGATIVE Urine Phencyclidine Screen Neg NEGATIVE Urine Amphetamines Screen Neg NEGATIVE Urine Benzodiazepines Screen Neg NEGATIVE Urine Cocaine Screen Neg NEGATIVE Urine Cannabinoids Screen Neg NEGATIVE Test 07/16/24 18:27 07/16/24 17:23 Range/Units Thyroid Stimulating Hormone (TSH) 1.27 0.55-4.78 uIU/mL Hemoglobin A1c 6.2 H <5.7 % A1C Total Bilirubin 0.4 0.2-1.0 mg/dL Aspartate Amino Transferase (AST) 21 13-40 U/L Alanine Aminotransferase (ALT) 38 7-40 U/L Alkaline Phosphatase 59 46-116 U/L Total Protein 7.2 5.7-8.2 g/dL Albumin 4.6 3.2-4.8 g/dL Imaging: CT abdomen pelvis IMPRESSION: 1. Mild wall thickening of the descending colon with possible mild adjacent fat stranding. Findings could represent colitis of infectious or inflammatory etiology. 2. Trace air noted within the bladder, nonspecific, could be due to prior dominguez or can be seen with cystitis. Assessment: Abdominal pain Possible colitis UTI Dizziness Plan: Discussed with Dr. James Stool for WBC, bacterial culture, occult blood. C diff Continue antibiotics at this time Zofran and Protonix Clear liquid diet We will continue to follow patient Discussed plan with patient and RN Thank you for this consult Date of Service: Jul 17, 2024 Billing Provider: SAMMI SHARIF Common Visit Codes: CONSULT ONLY Consultation Codes: [id number] CONSULT <60MIN SAMMI SHARIF Jul 17, 2024 13:37
[2024-07-18] VITALS (8 sets, daily range): BP systolic 121–133; BP diastolic 61–75; PULSE 78–114; RESP 17–19; TEMP 98–101.8; O2SAT 90–96
--- NOTE | 2024-07-18 02:46 | DVHINCON2 ---
DATE OF CONSULTATION: 07/17/2024 CARDIOLOGY CONSULTATION REFERRING PHYSICIAN: . CONSULTING PHYSICIAN: Asif Lui MD INDICATION: Dizziness. HISTORY OF PRESENT ILLNESS: The patient is a 63-year-old female with a history of hypertension, diabetes, stroke, and fibromyalgia, presented to the hospital after she had a sudden onset of abdominal pain, intense, following which she felt dizzy. She said that she almost "blacked out," came to the hospital for further evaluation. Denies any prior history of heart disease. She denies any chest pain as such. Still complaining of lower abdominal pain. PAST MEDICAL HISTORY: * Hypertension. * Diabetes mellitus. MEDICATIONS: Per med rec. ALLERGIES: PROCHLORPERAZINE. PHYSICAL EXAMINATION: GENERAL: Alert and awake, in no form of cardiopulmonary distress. VITAL SIGNS: Blood pressure 114/69, pulse 80 per minute, saturation 100%. HEENT: No carotid bruits. No jugular venous distention. CHEST: Bilateral air entry. CARDIOVASCULAR SYSTEM: Precordial and carotid pulses palpable. Normal S1, S2. Regular rate and rhythm. No appreciable gallop or rubs. EXTREMITIES: No peripheral edema. DIAGNOSTIC DATA: White count 13, hemoglobin 13, platelets 261. Sodium 139, potassium 4.0, creatinine is 0.8. Troponin negative. EKG is unremarkable. ASSESSMENT: * Lower abdominal pain. * Dizziness, likely vasovagal secondary to intense pain. * History of diabetes. * Hypertension. * Leukocytosis. RECOMMENDATIONS: * Continue IV antibiotics. * Treat underlying abdominal pain. * Monitor electrolytes. * Obtain echo. * Continue telemetry monitoring. * If echo unremarkable, no further cardiac workup indicated. Thank you for allowing me to participate in the care of this patient. Asif Lui MD LB/HEM/SHA TID: [id number] RECEIPT: [id number]
[2024-07-18] MEDS: ACETAMINOPHEN 325 MG TAB PO PRN (03:20)
[2024-07-18 06:20] LABS: Anion Gap 8 (5-15); Carbon Dioxide 27 mmol/L (20-31); Chloride 104 mmol/L (98-107); Potassium 4.2 mmol/L (3.5-5.1); Sodium 139 mmol/L (136-145)
[2024-07-18 06:21] LABS: Basophils # (auto) 0 10 ^3/uL (0-0.2); Basophils % (auto) 0.2 % (0.0-2.0); Calcium 9.5 mg/dL (8.7-10.4); Eosinophils # (auto) 0.1 10 ^3/uL (0-0.8); Eosinophils % (auto) 0.8 % (0.0-7.0); Hematocrit 37.7 % (36.0-46.0); Hemoglobin 12.8 g/dL (12.2-16.2); Lymphocytes # (auto) 2.3 10 ^3/uL (0.4-5.4); Lymphocytes % (auto) 14.9 % (10.0-50.0); Mean Corpuscular Hemoglobin 31.3 pg (28.0-32.0); Monocytes # (auto) 1.4 10 ^3/uL (0-1.3); Monocytes % (auto) 9.4 % (0.0-12.0); Neutrophils # (auto) 11.3 10 ^3/uL (1.6-8.6); Neutrophils % (auto) 74.7 % (37.0-80.0); Platelet Count (auto) 254 10^3/uL (140-450); Red Blood Cells 4.09 10^6/uL (4.0-5.20); Red Cell Distribution Width 12.9 % (11.8-14.3); White Blood Cell 15.1 10^3/uL (4.4-10.8)
[2024-07-18 06:26] LABS: BUN/Creatinine Ratio 15.1 (10.0-20.0); Blood Urea Nitrogen 13 mg/dL (9-23)
[2024-07-18 06:27] LABS: Glucose 137 mg/dL (74-106)
[2024-07-18] MEDS: cefTRIAXone 1GM/50ML D5W 50 ML IV SCH (08:54)
[2024-07-18] MEDS ORDERED: levoFLOXacin 250MG 50 ML IV SCH (10:00)
--- NOTE | 2024-07-18 14:31 | DVHPN2 ---
Progress Note Date Seen: Jul 18, 2024 Resident Creating Document: YOGESH VASQUEZ RESIDENT Medical Necessity Reason Pt with a Central, PICC or Fol: No Subjective Review of Systems patient seen and examined at the bedside. NPO after midnight. Patient is still reporting abdominal pain but no nausea vomiting or diarrhea. Patient reported that she had dark stool in the morning SOB positive. Changes from previous H/P or p: No Changes Objective vital signs Vital Sign Date Time Temp Pulse Resp B/P (MAP) Pulse Ox O2 Delivery O2 Flow Rate FiO2 07/18/24 13:00 98.5 78 18 121/68 (85) 94 98.5 07/18/24 08:10 Room Air* 0 21 Total Intake and Output 07/17/24 07/17/24 07/18/24 14:59 22:59 06:59 Intake Total 325 ml 100 ml 100 ml Balance 325 ml 100 ml 100 ml medications Current Medications Medications Dose Ordered Sig/Jeromy Route Start Time Stop Time Status Last Admin Dose Admin Levofloxacin/ Dextrose 100 ml @ 100 mls/hr DAILY IV 07/17/24 10:00 UNV Metronidazole 100 ml @ 100 mls/hr Q8HR IV 07/17/24 06:00 07/18/24 05:30 100 MLS/HR Enoxaparin Sodium 40 mg DAILY SC 07/17/24 10:00 07/18/24 09:02 40 MG Pantoprazole Sodium 40 mg DAILY IV 07/17/24 10:00 07/18/24 08:51 40 MG Acetaminophen/ Hydrocodone Bitart 1 tab Q6HPRN PRN PO 07/16/24 23:15 07/17/24 17:03 1 TAB Acetaminophen 650 mg Q6HPRN PRN PO 07/16/24 23:15 07/18/24 03:20 650 MG Sodium Chloride 1,000 ml @ 75 mls/hr [id number] IV 07/16/24 23:15 07/18/24 06:14 75 MLS/HR Ondansetron HCl 4 mg Q6HP PRN IV 07/16/24 23:15 Morphine Sulfate 2 mg Q6HPRN PRN IV 07/16/24 23:15 07/18/24 09:04 2 MG Gabapentin 600 mg BID PO 07/17/24 10:00 07/18/24 09:06 600 MG Ceftriaxone Sodium 50 ml @ 100 mls/hr DAILY IV 07/18/24 10:00 07/18/24 08:54 100 MLS/HR Examination Pt is lying on bed General Appearance: Alert, Oriented X3, Cooperative, Not in acute distress HEENT: Atraumatic, Mucous membranes moist/pink Respiratory: Clear to auscultation, Normal air movement, No added sounds Cardiovascular: Regular rate, Normal S1, Normal S2, No murmurs Abdominal: Generalized abdominal tenderness Extremities: No edema, Normal pulses, No tenderness/swelling Skin: No Significant rash, except past surgical scars Neuro: Normal speech, sensorimotor deficits none Psych/Mental Status: Mental status NL, Mood NL Nurse was there as sharperone during examination laboratory and microbiology Laboratory Tests 07/18/24 05:15 Test 07/18/24 05:15 Range/Units Serum Glucose 137 H 74-106 mg/dL Microbiology Date/Time Source Procedure Growth Status 07/16/24 23:30 Blood Blood Culture - Preliminary NO GROWTH AFTER 24 HOURS OF INCUBATION. Resulted 07/16/24 20:20 Urine - Midstream Clean Catch Urine Culture - Preliminary Resulted Labs and/or images reviewed: Labs reviewed by me, Image(s) reviewed by me Problem List/Assessment/Plan Problem List/Assessment/Plan Abdominal pain Possible colitis UTI Dizziness Fibromyalgia Plan: Stool for WBC, bacterial culture, occult blood. C diff FOBT positive. May need EGD tomorrow so keep her NPO after midnight Continue antibiotics at this time Zofran and Protonix NPO after midnight avoid NSAIDs, aspirin, caustic agents Thank you so much for the opportunity to consult on your patient. GI team will follow the patient Case an action plan discussed with Dr. Gifty James. Complex care planning needed total 49 minutes of detailed discussion. Plan discussed with: Patient Dietary Evaluation Review Comments: 1. Recommend timely diet advancement to CHO 60 gm/meal diet 2. Pt not to go >5 days CL/NPO diet only (Currently Day 2) 3. Appreciate daily wt's to trend Expected Outcomes/Goals: Diet progression, adequate oral intakes. YOGESH VASQUEZ RESIDENT Jul 18, 2024 14:31
--- NOTE | 2024-07-18 15:05 | DVHPN2 ---
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 motor deficit Medications Current Medications Medications Dose Ordered Sig/Jeromy Route Start Time Stop Time Status Last Admin Dose Admin Levofloxacin/ Dextrose 100 ml @ 100 mls/hr DAILY IV 07/17/24 10:00 UNV Metronidazole 100 ml @ 100 mls/hr Q8HR IV 07/17/24 06:00 07/18/24 05:30 100 MLS/HR Enoxaparin Sodium 40 mg DAILY SC 07/17/24 10:00 07/18/24 09:02 40 MG Pantoprazole Sodium 40 mg DAILY IV 07/17/24 10:00 07/18/24 08:51 40 MG Acetaminophen/ Hydrocodone Bitart 1 tab Q6HPRN PRN PO 07/16/24 23:15 07/17/24 17:03 1 TAB Acetaminophen 650 mg Q6HPRN PRN PO 07/16/24 23:15 07/18/24 03:20 650 MG Sodium Chloride 1,000 ml @ 75 mls/hr [id number] IV 07/16/24 23:15 07/18/24 06:14 75 MLS/HR Ondansetron HCl 4 mg Q6HP PRN IV 07/16/24 23:15 Morphine Sulfate 2 mg Q6HPRN PRN IV 07/16/24 23:15 07/18/24 09:04 2 MG Gabapentin 600 mg BID PO 07/17/24 10:00 07/18/24 09:06 600 MG Ceftriaxone Sodium 50 ml @ 100 mls/hr DAILY IV 07/18/24 10:00 07/18/24 08:54 100 MLS/HR Laboratory Results Laboratory Tests 07/18/24 05:15 Chemistry Test 07/18/24 05:15 Calcium Level 9.5 mg/dL (8.7-10.4) Urinalysis Test 07/16/24 20:20 Urine Color Light-yellow (Yellow) Urine Clarity Clear (Clear) Urine pH 5.0 (5.0-9.0) Urine Specific [place] 1.012 (1.001-1.035) Urine Protein Negative (Negative) Urine Ketones Negative (Negative) Urine Blood Negative /uL (Negative) Urine Nitrite 2+ (Negative) H Urine Bilirubin Negative (Negative) Urine Urobilinogen Normal mg/dL (Negative) Urine Leukocyte Esterase Negative /uL (Negative) Urine RBC <1 /hpf (0 - 4) Urine Microscopic WBC 2 /HPF (0-5) Urine Squamous Epithelial Cells Few /hpf (<5) Urine Bacteria Few /hpf (None Seen) H Urine Hyaline Casts Few /lpf (0 - 2) Urine Mucus Few (None Seen) Urine Glucose Trace mg/dL (Normal) Microbiology Microbiology Date/Time Source Procedure Growth Status 07/16/24 23:30 Blood Blood Culture - Preliminary NO GROWTH AFTER 24 HOURS OF INCUBATION. Resulted 07/16/24 20:20 Urine - Midstream Clean Catch Urine Culture - Preliminary Resulted Assessment/Plan Assessment/Plan 53-year-old female with a known history of fibromyalgia, diabetes mellitus type 2 initially presented to the hospital with the abdominal pain and dizziness found to have 1. Descending colon colitis 2. UTI 3. Leukocytosis likely reactive 4. Dizziness resolved rule out orthostatic vitals. 5. Diabetes mellitus type 2 6. Fibromyalgia -continue antibiotics, check stool for C diff, discharge plan Plan discussed with: Patient My Orders Orders - MADELAINE SULLIVAN MD Procedure Category Date Status Time Orthostatic Vital ORDERS 07/17/24 Transmitted Signs 16:29 Date of Service: Jul 18, 2024 Billing Provider: MADELAINE SULLIVAN MD Common Visit Codes: NOT BILLABLE MADELAINE SULLIVAN MD Jul 18, 2024 15:05
[2024-07-19] VITALS (12 sets, daily range): BP systolic 111–158; BP diastolic 56–83; PULSE 65–84; RESP 15–18; TEMP 97.9–98.6; O2SAT 93–99
[2024-07-19 03:14] LABS: Partial Thromboplastin Time 30.5 SEC (24.5-34.5); Prothrombin Time 10.6 sec (9.3-11.8)
[2024-07-19] MEDS ORDERED: fentaNYL CITRATE 100 MCG/2 ML VL IV PRN (13:45)
[2024-07-19] MEDS: ONDANSETRON HCL 4 MG/2 ML VIAL IV ONE (13:45)
[2024-07-19] MEDS ORDERED: fentaNYL CITRATE 100 MCG/2 ML VL ONE (13:49)
[2024-07-19] MEDS ORDERED: LIDOCAINE 2% (LOCAL ANESTH.) PF 5ml SDV ONE (13:49)
[2024-07-19] MEDS ORDERED: GLYCOPYRROLATE 0.2 MG/ML 1ML VIAL ONE (13:49)
[2024-07-19] MEDS ORDERED: PROPOFOL 10 MG/ML 20 ML IV ONE (13:49)
[2024-07-19] MEDS ORDERED: ONDANSETRON HCL 4 MG/2 ML VIAL ONE (13:49)
[2024-07-19] MEDS ORDERED: CEFD300C2 PO (14:14)
[2024-07-19] MEDS ORDERED: METR-344 PO (14:14)
[2024-07-19] MEDS ORDERED: PANT40TA2 PO (14:14)
--- NOTE | 2024-07-19 14:15 | DVHDS2 ---
Discharge Summary Date of Admission Jul 16, 2024 at 23:08 Date of Discharge: Jul 19, 2024 Labs/Diagnostic Data: Laboratory Results Test 07/19/24 02:47 07/18/24 14:41 07/18/24 05:15 07/17/24 06:40 Prothrombin Time 10.6 sec (9.3-11.8) Prothrombin Time INR 1.00 (0.9-1.15) Activated Partial Thromboplast Time 30.5 SEC (24.5-34.5) Stool Occult Blood Positive (Negative) Stool Occult Blood Sample #3 (Negative) Stool for White Cells None seen White Blood Count 15.1 10^3/uL (4.4-10.8) Red Blood Count 4.09 10^6/uL (4.0-5.20) Hemoglobin 12.8 g/dL (12.2-16.2) Hematocrit 37.7 % (36.0-46.0) Mean Corpuscular Volume 92.0 fL (80.0-100.0) Mean Corpuscular Hemoglobin 31.3 pg (28.0-32.0) Mean Corpuscular Hemoglobin Concent 34.0 g/dL (32.0-36.0) Red Cell Distribution Width 12.9 % (11.8-14.3) Platelet Count 254 10^3/uL (140-450) Mean Platelet Volume 8.7 fL (6.9-10.8) Neutrophils (%) (Auto) 74.7 % (37.0-80.0) Lymphocytes (%) (Auto) 14.9 % (10.0-50.0) Monocytes (%) (Auto) 9.4 % (0.0-12.0) Eosinophils (%) (Auto) 0.8 % (0.0-7.0) Basophils (%) (Auto) 0.2 % (0.0-2.0) Neutrophils # (Auto) 11.3 10 ^3/uL (1.6-8.6) Lymphocytes # (Auto) 2.3 10 ^3/uL (0.4-5.4) Monocytes # (Auto) 1.4 10 ^3/uL (0-1.3) Eosinophils # (Auto) 0.1 10 ^3/uL (0-0.8) Basophils # (Auto) 0 10 ^3/uL (0-0.2) Nucleated Red Blood Cells 0.0 % Sodium Level 139 mmol/L (136-145) Potassium Level 4.2 mmol/L (3.5-5.1) Chloride Level 104 mmol/L (98-107) Carbon Dioxide Level 27 mmol/L (20-31) Anion Gap 8 (5-15) Blood Urea Nitrogen 13 mg/dL (9-23) Creatinine 0.86 mg/dL (0.550-1.02) Glomerular Filtration Rate Calc 76 mL/min (>90) BUN/Creatinine Ratio 15.1 (10.0-20.0) Serum Glucose 137 mg/dL (74-106) Calcium Level 9.5 mg/dL (8.7-10.4) Lactic Acid Level 1.6 mmol/L (0.4-2.0) Lipase 55 U/L (12-53) Test 07/17/24 02:33 07/16/24 23:20 07/16/24 20:20 07/16/24 18:27 Troponin I High Sensitivity < 3 ng/L (</=34) Thyroxine (T4) 7.5 ug/dL (4.5-12.0) Urine Color Light-yellow (Yellow) Urine Clarity Clear (Clear) Urine pH 5.0 (5.0-9.0) Urine Specific [place] 1.012 (1.001-1.035) Urine Protein Negative (Negative) Urine Ketones Negative (Negative) Urine Blood Negative /uL (Negative) Urine Nitrite 2+ (Negative) Urine Bilirubin Negative (Negative) Urine Urobilinogen Normal mg/dL (Negative) Urine Leukocyte Esterase Negative /uL (Negative) Urine RBC <1 /hpf (0 - 4) Urine Microscopic WBC 2 /HPF (0-5) Urine Squamous Epithelial Cells Few /hpf (<5) Urine Bacteria Few /hpf (None Seen) Urine Hyaline Casts Few /lpf (0 - 2) Urine Mucus Few (None Seen) Urine Glucose Trace mg/dL (Normal) Urine Opiates Screen Neg (NEGATIVE) Urine Fentanyl Screen Neg (NEGATIVE) Urine Barbiturates Screen Neg (NEGATIVE) Urine Phencyclidine Screen Neg (NEGATIVE) Urine Amphetamines Screen Neg (NEGATIVE) Urine Benzodiazepines Screen Neg (NEGATIVE) Urine Cocaine Screen Neg (NEGATIVE) Urine Cannabinoids Screen Neg (NEGATIVE) Thyroid Stimulating Hormone (TSH) 1.27 uIU/mL (0.55-4.78) Test 07/16/24 17:23 Hemoglobin A1c 6.2 % A1C (<5.7) Total Bilirubin 0.4 mg/dL (0.2-1.0) Aspartate Amino Transferase (AST) 21 U/L (13-40) Alanine Aminotransferase (ALT) 38 U/L (7-40) Alkaline Phosphatase 59 U/L (46-116) Total Protein 7.2 g/dL (5.7-8.2) Albumin 4.6 g/dL (3.2-4.8) Other Laboratory Tests 07/18/24 05:15 Brief Hx & Hospital Course: 53-year-old female with a known history of fibromyalgia, diabetes mellitus type 2 initially presented to the hospital with the abdominal pain and dizziness found to have acute gastroenteritis as well as descending colon colitis. Patient also has UTI. Patient was treated with IV antibiotics and patient's stool culture and C diff is negative. Patient has a leukocytosis which is reactive secondary to colitis. Patient underwent EGD after she had a was stool occult blood test, EGD showed evidence of moderate gastritis with erosive esophagitis. Protonix was recommended by GI. Patient reviewed discharged on p.o. antibiotics as well as Protonix. Patient need to follow up outpatient with PCP as was Dr. Gifty James in 1-2 weeks with repeat CBC. Condition at Discharge: Stable Final Diagnosis/Problems List 53-year-old female with a known history of fibromyalgia, diabetes mellitus type 2 initially presented to the hospital with the abdominal pain and dizziness found to have 1. Descending colon colitis 2. UTI 3. Leukocytosis likely reactive 4. Dizziness resolved rule out orthostatic vitals. 5. Diabetes mellitus type 2 6. Fibromyalgia Discharge Disposition: Home SNF Discharge Will this Physician continue t: No Discharge Instruct/Medications Diet: Cardiac 2g Na,low cholest Activity: See Comment Activity comment: Driving no signs of legal documents, no playing on heavy machinery while on narcotics Follow Up/Referral: Follow up with PCP in 1-2 weeks Follow up with Dr. Gifty James in 1-2 weeks Medications: As prescribed NG consult Discharge Statement: "Patient was advised to return to the ER or call 911 if any headaches, dizziness, shortness of breath, chest pain, abdominal pain, bleeding, fevers, or worsening of medical condition. Patient was counseled about treatment plan, medications, possible side effects, patientverbalized understanding. All questions were answered to the best of my ability. This discharge took greater then 30 minutes in planning, reviewing documentation, counseling the patient, and discussing with other team members." ASSESSMENT ASSESSMENT Assessment 53-year-old female with a known history of fibromyalgia, diabetes mellitus type 2 initially presented to the hospital with the abdominal pain and dizziness found to have 1. Descending colon colitis 2. UTI 3. Leukocytosis likely reactive 4. Dizziness resolved rule out orthostatic vitals. 5. Diabetes mellitus type 2 6. Fibromyalgia Date of Service: Jul 19, 2024 Billing Provider: MADELAINE SULLIVAN MD Common Visit Codes: NOT BILLABLE MADELAINE SULLIVAN MD Jul 19, 2024 14:15
[2024-07-19] MEDS: FAMOTIDINE (10MG/ML) 2ML VL IV ONE (14:20)
--- NOTE | 2024-07-19 14:22 | DVHOP2 ---
Operative Report DATE OF OPERATION: 07/19/24 PROCEDURE: Upper Endoscopy with biopsy. PREOPERATIVE INDICATION: The patient is a 63 -year-old female undergoing endoscopy for melena and Hemoccult-positive stools POSTOPERATIVE DIAGNOSES: 1. Moderate gastritis with hyperemia erythema involving the body of the stomach and the antrum 2. 1 cm sliding-type hiatal hernia with grade a erosive esophagitis 3. Otherwise normal examination up to the 2nd and 3rd part of the duodenum with good bile drainage and no active bleeding PROCEDURE PERFORMED BY: Hafsa James GI NURSE: Nicole SCOPE: Olympus videoendoscope. ASA CLASS: 2. PREOPERATIVE MEDICATIONS: Mac sedation, Dr. Chance PROCEDURE IN DETAIL: After obtaining an informed consent, the patient was placed on left lateral decubitus position. The patient was then sedated with the above medications. A bite block was placed between her teeth. The endoscope was then passed through the oropharynx, into the esophagus, and through the stomach and pylorus up to the second and third part of the duodenum. The endoscope was then withdrawn. The 2nd and 3rd part of the duodenum and the duodenal bulb were normal. Duodenal biopsies were obtained. The pre-pyloric area antrum and body of the stomach showed [id number] gastritis with hyperemia erythema Or retroflexion of the fundus and cardia were normal except for mild gastritis. Gastric biopsies were obtained. The endoscope was then withdrawn into the distal esophagus. Patient had a 0.5-1 cm sliding-type hiatal hernia There was grade a erosive esophagitis. GE junction biopsies were obtained. The remaining distal and proximal esophagus and oropharynx were unremarkable The patient tolerated the procedure well without difficulty. COMPLICATIONS : None SPECIMENS: Duodenal biopsy Gastric biopsy GE junction biopsy DISPOSITION: Transfer back to the floor Stable PLAN: 1. Await for biopsy result 2. Will place pt on Protonix 40 mg p.o. daily 3. DC aspirin NSAIDs smoking alcohol 4. Resume GI soft diet advance as tolerated 5. Outpatient follow-up with me 2-4 weeks review results and discuss further management HAFSA JAMES MD Jul 19, 2024 14:22
[2024-07-20 01:00] VITALS: BP 137/74; PULSE 65; RESP 16; TEMP 97.3; O2SAT 93
[2024-07-20 05:00] VITALS: BP 122/68; PULSE 65; RESP 18; TEMP 97.9; O2SAT 93
[2024-07-20 06:11] LABS: Anion Gap 6 (5-15); Carbon Dioxide 28 mmol/L (20-31); Potassium 3.5 mmol/L (3.5-5.1); Sodium 143 mmol/L (136-145)
[2024-07-20 06:12] LABS: Calcium 9.3 mg/dL (8.7-10.4)
[2024-07-20 06:13] LABS: Basophils # (auto) 0.1 10 ^3/uL (0-0.2); Basophils % (auto) 0.8 % (0.0-2.0); Chloride 109 mmol/L (98-107); Eosinophils # (auto) 0.1 10 ^3/uL (0-0.8); Eosinophils % (auto) 1.5 % (0.0-7.0); Hematocrit 34.3 % (36.0-46.0); Lymphocytes # (auto) 2.4 10 ^3/uL (0.4-5.4); Lymphocytes % (auto) 31.4 % (10.0-50.0); Mean Corpuscular Hgb Conc. 34.9 g/dL (32.0-36.0); Mean Corpuscular Volume 91.7 fL (80.0-100.0); Monocytes # (auto) 0.7 10 ^3/uL (0-1.3); Monocytes % (auto) 8.9 % (0.0-12.0); Neutrophils # (auto) 4.4 10 ^3/uL (1.6-8.6); Neutrophils % (auto) 57.4 % (37.0-80.0); Nucleated Red Blood Cells % 0.1 %; Platelet Count (auto) 242 10^3/uL (140-450); Red Blood Cells 3.75 10^6/uL (4.0-5.20); Red Cell Distribution Width 12.4 % (11.8-14.3); White Blood Cell 7.6 10^3/uL (4.4-10.8)
[2024-07-20 06:18] LABS: Blood Urea Nitrogen 8 mg/dL (9-23); Glucose 109 mg/dL (74-106)
[2024-07-20 08:00] VITALS: PULSE 69; PULSE 70; RESP 20; O2SAT 98
[2024-07-20 09:00] VITALS: BP 140/72; PULSE 69; RESP 20; TEMP 97.7; O2SAT 98
[2024-07-20] MEDS: FAMOTIDINE (10MG/ML) 2ML VL IV ONE (09:45)
--- NOTE | 2024-07-20 11:05 | DVHPN2 ---
Progress Note Date Seen: July 20, 2024 Resident Creating Document: YOGESH VASQUEZ RESIDENT Medical Necessity Reason Pt with a Central, PICC or Fol: No Subjective Review of Systems Patient seen and examined at the bedside. Patient reported improvement in her symptoms since admission, reported no new complaints. Patient is able to tolerate diet. And advance as tolerated. Patient reports: No new complaints, Feels better Objective vital signs Vital Sign Date Time Temp Pulse Resp B/P (MAP) Pulse Ox O2 Delivery O2 Flow Rate FiO2 07/20/24 09:00 97.7 69 20 140/72 (94) 98 97.7 07/20/24 08:00 Room Air* 0 21 Total Intake and Output 07/19/24 07/19/24 07/20/24 14:59 22:59 06:59 Intake Total 250 ml 700 ml 100 ml Balance 250 ml 700 ml 100 ml medications Current Medications Medications Dose Ordered Sig/Jeromy Route Start Time Stop Time Status Last Admin Dose Admin Levofloxacin/ Dextrose 100 ml @ 100 mls/hr DAILY IV 07/17/24 10:00 UNV Metronidazole 100 ml @ 100 mls/hr Q8HR IV 07/17/24 06:00 07/20/24 05:03 100 MLS/HR Enoxaparin Sodium 40 mg DAILY SC 07/17/24 10:00 07/20/24 09:43 40 MG Pantoprazole Sodium 40 mg DAILY IV 07/17/24 10:00 07/20/24 09:42 40 MG Acetaminophen/ Hydrocodone Bitart 1 tab Q6HPRN PRN PO 07/16/24 23:15 07/20/24 09:42 1 TAB Acetaminophen 650 mg Q6HPRN PRN PO 07/16/24 23:15 07/18/24 03:20 650 MG Sodium Chloride 1,000 ml @ 75 mls/hr [id number] IV 07/16/24 23:15 07/20/24 07:36 75 MLS/HR Ondansetron HCl 4 mg Q6HP PRN IV 07/16/24 23:15 Morphine Sulfate 2 mg Q6HPRN PRN IV 07/16/24 23:15 07/20/24 01:01 2 MG Gabapentin 600 mg BID PO 07/17/24 10:00 07/20/24 09:41 600 MG Ceftriaxone Sodium 50 ml @ 100 mls/hr DAILY IV 07/18/24 10:00 07/20/24 09:46 100 MLS/HR Examination Pt is lying on bed General Appearance: Alert, Oriented X3, Cooperative, Not in acute distress HEENT: Atraumatic, Mucous membranes moist/pink Respiratory: Clear to auscultation, Normal air movement, No added sounds Cardiovascular: Regular rate, Normal S1, Normal S2, No murmurs Abdominal: Active bowel sounds, Soft, no distention, no tenderness Extremities: No edema, Normal pulses, No tenderness/swelling Skin: No Significant rash, except past surgical scars Neuro: Normal speech, sensorimotor deficits none Psych/Mental Status: Mental status NL, Mood NL Nurse was there as sharperone during examination laboratory and microbiology Laboratory Tests 07/20/24 05:19 Test 07/20/24 05:19 Range/Units Serum Glucose 109 H 74-106 mg/dL Microbiology Date/Time Source Procedure Growth Status 07/18/24 14:41 Stool Stool Culture - Final Complete 07/18/24 14:41 Stool Shiga Toxin I & II - Final Complete 07/18/24 14:41 Stool Clostridium difficile Toxin Assay - Final Complete 07/16/24 23:30 Blood Blood Culture - Preliminary NO GROWTH AFTER 72 HOURS OF INCUBATION. Resulted 07/16/24 20:20 Urine - Midstream Clean Catch Urine Culture - Final Complete Labs and/or images reviewed: Labs reviewed by me, Image(s) reviewed by me Problem List/Assessment/Plan Problem List/Assessment/Plan Abdominal pain, Moderate gastritis Mild sliding hiatal hernia with a gradient a erosive esophagitis Possible colitis UTI Dizziness Fibromyalgia Plan: Protonix 40 mg p.o. b.i.d. Outpatient follow up in 2-4 weeks to reviewed results and further management with in and discussion about colonoscopy Stool for WBC, bacterial culture. C diff negative FOBT positive. Continue antibiotics at this time Zofran and Protonix Avoid NSAIDs, aspirin, caustic agents Okay to discharge Thank you so much for the opportunity to consult on your patient. GI team will follow the patient Case an action plan discussed with Dr. Gifty James. Complex care planning needed total 49 minutes of detailed discussion. Plan discussed with: Patient Dietary Evaluation Review Comments: 1. Recommend timely diet advancement to CHO 60 gm/meal diet 2. Pt not to go >5 days CL/NPO diet only (Currently Day 2) 3. Appreciate daily wt's to trend Expected Outcomes/Goals: Diet progression, adequate oral intakes. YOGESH VASQUEZ RESIDENT July 20, 2024 11:05
[2024-07-20 13:00] VITALS: BP 135/74; PULSE 75; RESP 20; TEMP 98.5; O2SAT 93
--- NOTE | 2024-07-20 13:51 | DVHSR ---
APPROVED REPORT EXAM: Two-dimensional and M-mode echocardiogram with Doppler and color Doppler. Mitral Valve MitralMitral Stenosis E/A ratio0.02D MVAcm2 LEFT VENTRICLE The left ventricle is normal size. There is normal left ventricular wall thickness. The left ventricle is normal in structure and function. Left ventricle systolic function is normal. The Ejection Fraction is 55-60%. No regional wall motion abnormalities noted. RIGHT VENTRICLE The right ventricle is normal size. There is normal right ventricular wall thickness. The right ventricular systolic function is normal. ATRIA The left atrium size is normal. The right atrium size is normal. The interatrial septum is intact with no evidence for an atrial septal defect. MITRAL VALVE The mitral valve is normal in structure and function. There is no evidence of mitral valve prolapse. There is no mitral valve stenosis. There is no mitral valve regurgitation noted. PULMONIC VALVE The pulmonary valve is normal in structure and function. There is no pulmonic valvular regurgitation. There is no pulmonic valvular stenosis. TRICUSPID VALVE The tricuspid valve is normal in structure and function. There is no tricuspid valve regurgitation noted. There is no tricuspid valve prolapse or vegetation. There is no tricuspid valve stenosis. AORTIC VALVE The aortic valve is normal in structure and function. No aortic regurgitation is present. There is no aortic valvular stenosis. There is no aortic valvular vegetation. GREAT VESSELS The aortic root is normal in size. PERICARDIAL EFFUSION There is a small pericardial effusion. Conclusion There is normal left ventricular wall thickness. The left ventricle is normal in structure and function. Left ventricle systolic function is normal. The Ejection Fraction is 55-60%. There is no gross valvular pathology There is a small pericardial effusion.
== END 2024-07-20 14:23 | disposition home or self-care (01) | DRG 241 ==
LOC: EDBD 16:58 → ER 17:01 → OVERFLOW 23:08 → TELE-EAST 07-17 15:59
PROVIDERS: ADMIT Nurse Practitioner Family; ATTEND Nurse Practitioner Family
PROC: 0DB68ZX Excision of Stomach, Via Natural or Artificial Opening Endoscopic, Diagnostic (ICD-10-PCS; 2024-07-19)
PROC: 0DB48ZX Excision of Esophagogastric Junction, Via Natural or Artificial Opening Endoscopic, Diagnostic (ICD-10-PCS; 2024-07-19)
PROC: 0DB98ZX Excision of Duodenum, Via Natural or Artificial Opening Endoscopic, Diagnostic (ICD-10-PCS; principal; 2024-07-19 13:56)
DX: K29.70 Gastritis, unspecified, without bleeding (principal); N17.0 Acute kidney failure with tubular necrosis; A04.9 Bacterial intestinal infection, unspecified; K22.10 Ulcer of esophagus without bleeding; D72.829 Elevated white blood cell count, unspecified; I10 Essential (primary) hypertension; K44.9 Diaphragmatic hernia without obstruction or gangrene; M79.7 Fibromyalgia; N39.0 Urinary tract infection, site not specified; I25.2 Old myocardial infarction; Z86.73 Personal history of transient ischemic attack (TIA), and cerebral infarction without residual deficits; Z79.899 Other long term (current) drug therapy; Z79.84 Long term (current) use of oral hypoglycemic drugs; Z79.2 Long term (current) use of antibiotics; Z90.49 Acquired absence of other specified parts of digestive tract
CPT/HCPCS: 36415; 43239; 70450; 71045; 74176; 80048; 80053; 80307; 81001; 82270; 83036; 83605; 83690; 84436; 84443; 84484; 85025; 85048; 85610; 85730; 86850; 86900; 86901; 87040; 87045; 87086; 87427; 87493; 93005; 93306; 96361; 96374; 96375; G0378; J1956; J2003; J2405; J2470; J2704; J3490